=== PATIENT | female | born 1945 | race Caucasian/White ===

== ENCOUNTER → 2019-08-29 | Outpatient (CLI) | payer MEDICARE, BC ==
--- NOTE | 2019-08-30 08:40 | KCIC ---
EXAMINATION: Magnetic resonance imaging (MRI) of the cervical spine without contrast 08/29/2019 4:15 PM HISTORY: Cervicalgia. Limited range of motion of the right arm. Progressing in recent months. TECHNIQUE: Multiplanar multi-weighted MRI of the cervical spine was performed without intravenous contrast using the standard cervical spine protocol. Contrast information: None administered COMPARISON: None available. FINDINGS: There is minimal retrolisthesis of C4 on C5 and C5 on C6. There is mild to moderate disc height loss at C4-C5 and C5-C6. There is disc desiccation at C4-C5 and C5-C6. There is an osseous hemangioma at T2. Cervical spinal cord signal intensity is normal in all sequences. Mild anterior marginal osteophytosis. Vertebral body heights are maintained. Marrow signal intensity is normal in all sequences. Posterior fossa is normal in appearance. Vertebral artery flow voids are maintained. Precervical junction is intact. There is no paraspinal soft tissue abnormality. No prevertebral edema. C2-C3: Mild disc bulge with central disc protrusion. Mild left facet arthropathy. No uncovertebral joint disease. No neuroforaminal or spinal canal stenosis. C3-C4: There is mild disc bulge. No significant facet arthropathy. No neuroforaminal or spinal canal stenosis. C4-C5: There is a posterior disc osteophyte complex. There is mild facet arthropathy. Mild left uncovertebral joint disease. Mild left neuroforaminal stenosis. Mild spinal canal stenosis with ligamentum flavum infolding. No distortion of the cord or cord signal alteration. C5-C6: There is a posterior disc osteophyte complex. There is moderate left and mild right facet arthropathy. Mild uncovertebral joint disease. Mild to moderate bilateral neuroforaminal stenosis. Mild spinal canal stenosis, exacerbated by ligament of flavum infolding. There is no distortion of the cord or cord signal alteration. C6-C7: Mild disc bulge. Mild facet arthropathy. No neuroforaminal or spinal canal stenosis. C7-T1: Mild disc bulge. Mild facet arthropathy. No significant neuroforaminal or spinal canal stenosis. IMPRESSION: [id number] degenerative changes of the cervical spine, most prominent at C4-C5 and C5-C6 as detailed above. Electronically signed by: Elyse Serrano MD (08/30/2019 8:37 AM) [facility]
== END | disposition home or self-care (01) ==
LOC: KCIC MRI 15:28
PROVIDERS: ATTEND Physician Assistant Medical
DX: M47.812 Spondylosis without myelopathy or radiculopathy, cervical region (principal); M48.02 Spinal stenosis, cervical region; M50.21 Other cervical disc displacement, high cervical region; M25.78 Osteophyte, vertebrae; M12.88 Other specific arthropathies, not elsewhere classified, other specified site; D18.09 Hemangioma of other sites
CPT/HCPCS: 72141

== ENCOUNTER → 2019-09-05 | Outpatient (CLI) | payer MEDICARE, BC ==
--- NOTE | 2019-09-05 12:50 | KCIC ---
MR of the right shoulder HISTORY: Progressing right shoulder pain and limited range of motion. TECHNIQUE: Routine multiplanar sequences are obtained. FINDINGS: The acromioclavicular joint is mildly degenerative. Mild undersurface mass effect. Diffuse thickening and signal within the rotator cuff compatible with tendinosis. No measurable rotator cuff tear. No significant subdeltoid bursal effusion. No significant glenohumeral joint effusion. Tear of the posterosuperior labrum. Anterosuperior sublabral foramen, and a thick cordlike middle glenohumeral ligament, normal variants. No acute articular cartilage defect. Biceps tendon is intact. No acute fracture. No aggressive bone destruction. No acute soft tissue abnormality. IMPRESSION: 1. Posterosuperior labral tear. 2. Rotator cuff tendinosis without evidence of a tear. Electronically signed by: Alfredo Martinez MD (09/05/2019 12:47 PM) [facility]2
== END | disposition home or self-care (01) ==
LOC: KCIC MRI 07:29
PROVIDERS: ATTEND Physician Assistant Medical
DX: S43.491A Other sprain of right shoulder joint, initial encounter (principal); M19.011 Primary osteoarthritis, right shoulder; X58.XXXA Exposure to other specified factors, initial encounter; Y93.89 Activity, other specified; Y92.89 Other specified places as the place of occurrence of the external cause; Y99.8 Other external cause status
CPT/HCPCS: 73221

== ENCOUNTER → 2019-09-20 | Outpatient (CLI) | payer MEDICARE, BC ==
[~2019-09-20] MED LIST: GADOTERATE 7.5 MMOL/15ML VIAL. IVP ONE
[2019-09-20 10:55] LABS: GFR 54.3
--- NOTE | 2019-09-21 09:50 | RAD ---
CHEST WO/W CONTRAST History: Brachial plexus evaluation for neuritis. Right shoulder pain. Technique: Multiplanar, multi sequential pre and postcontrast MR imaging was performed of the right brachial plexus. Comparison: Right shoulder and cervical spine MRI September 05, 2019 and August 29, 2019. Findings: Mild edema within the right supraspinatus and infraspinatus muscle with mild enhancement. No pathologic signal abnormality or enhancement within the region of the brachial plexus nerves. No mass. No fluid collection. No cyst. Linear hyperintense structure within the region of the right brachial plexus at the level of thoracic inlet with enhancement likely related to vasculature. Partially imaged cervical spondylosis characterized on dedicated cervical spine MRI. Impression: 1. Mild edema enhancement within the right supraspinatus and infraspinatus muscle, may indicate denervation edema. 2. No pathologic signal abnormality or mass within the region of the right brachial plexus. Electronically signed by: Jersey Bonilla DO (09/21/2019 9:47 AM) [facility]
== END | disposition home or self-care (01) ==
LOC: MRI 09:55
PROVIDERS: ATTEND Orthopaedic Surgery
DX: Z01.812 Encounter for preprocedural laboratory examination (principal); M75.81 Other shoulder lesions, right shoulder; R60.0 Localized edema; Z79.01 Long term (current) use of anticoagulants
CPT/HCPCS: 36415; 71552; 82565; A9575

== ENCOUNTER → 2019-11-28 | Outpatient (CLI) | payer MEDICARE, BC ==
[~2019-11-28] MED LIST changes: +ASPI81TA50 PO; +ATOR20TA PO; +CALC-71 PO; +ESCITALOPRAM OX10 MG PO; +GABA-585 PO; -GADOTERATE 7.5 MMOL/15ML VIAL. IVP ONE; +IOHEXOL 180 MG/ML 10 ML VIAL. ONE; +LEVO75TA PO; +LIFI1DRO EACHEYE; +OMEG100021 PO; +PROP15DR EACHEYE; +WOMENS ONE A DAY PO; +methylPREDNISolone ACETATE 40 MG/ML VIAL. ONE; +methylPREDNISolone ACETATE 80 MG/ML VIAL. ONE
--- NOTE | 2019-11-29 04:02 | PAIN ---
DATE OF SERVICE: 11/28/2019 INITIAL CONSULTATION FOR PAIN CLINIC CHIEF COMPLAINT: Right upper extremity weakness. HISTORY OF PRESENT ILLNESS: This is a 74-year-old female who presents with history of weakness in the right upper extremity and decrease in motion since 07/2019, the patient came on very suddenly without the result of any specific injury or action that she is aware of. She is undergoing physical therapy since that time and is still doing it with some help. She reports some increase in strength, but better increase in range, although while she was doing the therapy initially, the range of motion got much worse in July. The patient reports now the right shoulder has poor control. She is unable to reach over her head or even up to the side. She cannot abduct her arm more than about 45 degrees. The patient reports there is some tingling in the arm and hand radiating down the back at the right side of the shoulder blade and also into the neck and the trapezius, but no real pain, just weakness and decreased range of motion in the right upper extremity. She is right hand dominant. The patient did have an MRI scan of the cervical spine showing some posterior disk osteophyte complex at C4-C5 and C5-C6 with mild facet arthropathy and mild left neural foraminal stenosis at C4-C5, mild spinal canal stenosis at C4-C5 as well. C5-C6 shows [id number] bilateral neural foraminal stenosis and mild spinal canal stenosis, exacerbated by ligamentum flavum infolding as well. C6-C7 shows mild disk bulge without stenosis. The patient rates her disability rating from 0-10, 10 being the worst, is 8-9 with family home responsibilities, 7-8 with recreation, 6 with social activity and occupation, 0 with sexual behavior, 9 with self-care and 8 with life support activities. The patient is taking gabapentin 100 mg 3 times daily, which she feels may be helpful for the range of motion on her right shoulder as well, but only very minimally. The patient reports no symptoms in the left upper extremity, no actual pain on the right, but significant range of motion loss and weakness. PAST MEDICAL HISTORY: Significant for hearing loss; previous breast surgery, chemotherapy, radiation and surgery for that as well, the breast cancer; hyperlipidemia; arthritis; anxiety; depression. PREVIOUS SURGERY: Include double mastectomy, previous C-sections and fracture of the left arm. CURRENT MEDICATIONS: Include Lipitor, Lexapro, gabapentin, Synthroid, Ecotrin, vitamins, fish oil, calcium, and eyedrops. ALLERGIES: The patient has no known drug allergies. FAMILY HISTORY: Significant for no major medical problems or conditions that she lists. SOCIAL HISTORY: The patient does not drink alcohol. Does not use any illegal, illicit or recreational drugs. Does not smoke. She is and lives with her spouse, lives locally in [place], [place]. Reports she is currently retired. REVIEW OF SYSTEMS: The patient's review of systems is positive for those items mentioned in history of present illness. All systems reviewed and otherwise negative. It is complete, full and well documented on the patient's chart. PHYSICAL EXAMINATION: VITAL SIGNS: The patient's blood pressure is 126/81, pulse 68, respirations 16, temperature 97.9 degrees Fahrenheit, height is 5 feet 2-1/2 inches and weight is 132 pounds. GENERAL: The patient is awake, alert, oriented, appropriate, very pleasant demeanor. The patient is accompanied by her . HEENT: Head shows normocephalic, atraumatic. Extraocular movements are intact and symmetrical. Oral cavity: Mucous membranes moist and pink. Dentition is intact. NECK: Shows anterior throat supple. CHEST: Shows normal on inspection. Breath sounds are clear bilaterally. HEART: Shows S1, S2 clear. No murmurs auscultated. ABDOMEN: Soft, nontender, nondistended. No palpable organomegaly is noted. No rebound or guarding demonstrated. BACK: Shows spine grossly in the midline. The patient's neck shows full rotational motion of cervical spine, normal-appearing cervical lordotic curvature, thoracic kyphotic curvature and lumbar lordotic curvature. Cervical paraspinous muscle shows symmetrical on inspection, on palpation shows some very minimal tenderness in the inferior aspect of the cervical paraspinous musculature, only on the right, into the trapezius musculature as well on the right side, but only very mildly tender with palpation. No specific trigger points, no radiation of pain. Left side is nontender. The patient has full rotational motion of cervical spine laterally as well as extension and flexion without significant pain reported or difficulty. EXTREMITIES: The patient's upper extremities show deep tendon reflexes at 2+ in the biceps and triceps tendons. Motor exam is strong with erp specialist strength rated at 5/5 as is biceps and triceps flexion. The patient's right deltoid flexion, however, is very weak about 2 on a scale of 5 with lateral and posterior movement as well as anterior is about 3-4 on a scale of 5. The patient is unable to abduct her shoulder greater than about 40-45 degrees. Left side has full rotation and motion and full strength 5/5 on the left throughout. Peripheral pulses are 2+ radial. No peripheral edema is noted. The patient's right deltoid is visibly atrophied compared to the left on visual inspection as well. Shoulder shrug is strong and intact, but the patient is using her trapezius musculature as the accessory muscle with movement of the right arm. When asked to reach over her head, she is unable to do so without assistance from the left hand to support the right upper extremity. SKIN: Shows warm and dry, good turgor. No edema. No sores, rashes or bruising throughout. IMPRESSION: 1. This is a 74-year-old female with approximate 4-month history of weakness, right upper extremity. 2. MRI scan of cervical spine as noted. 3. 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 4. Arthritis. 5. History of breast cancer. PLAN: Options were discussed with the patient and her who accompanied her to visit including conservative medical managements, continued physical therapies, interventional techniques. She would like to pursue interventional techniques. We discussed a cervical epidural steroid injection using description as well as anatomical models to describe the procedure. Risks were discussed including but not limited to bleeding, infection, possibility of epidural hematoma, subsequent neurologic compromise, dural puncture, headaches, spinal cord and/or nerve damage, side effects of steroid medication and poor results regarding pain control. The patient understands and wished to proceed. The patient will return to clinic in approximately 2 weeks for followup. She was counseled on return appointment, activity level and side effects to be aware of. DIAGNOSES: Cervical radiculopathy with cervical degenerative disk disease and cervical spinal stenosis. PROCEDURE: Cervical epidural steroid injection, translaminar approach C6-C7 level using C-arm fluoroscopic guidance under sterile prep and drape using local anesthetic. MEDICATION INJECTED: A total of 120 mg Depo-Medrol plus 5 mL of preservative-free normal saline and 2 mL of contrast. CONDITION AT DISCHARGE: Stable. The patient tolerated the procedure well, had no complications. JESICA ESQUEDA MD DR: BENITA/aminta JOB#: [id number] / [id number] Krunal Peñaloza MD
== END ==
LOC: PNCL 10:03
PROVIDERS: ATTEND Anesthesiology
DX: M50.123 Cervical disc disorder at C6-C7 level with radiculopathy (principal); M48.02 Spinal stenosis, cervical region; E78.5 Hyperlipidemia, unspecified; F41.9 Anxiety disorder, unspecified; F32.9 Major depressive disorder, single episode, unspecified; Z85.3 Personal history of malignant neoplasm of breast; Z87.39 Personal history of other diseases of the musculoskeletal system and connective tissue; Z90.13 Acquired absence of bilateral breasts and nipples; Z98.890 Other specified postprocedural states
CPT/HCPCS: 62321; J1030; J1040; Q9965

== ENCOUNTER → 2019-12-12 | Outpatient (CLI) | payer MEDICARE, BC ==
[~2019-12-12] MED LIST changes: -IOHEXOL 180 MG/ML 10 ML VIAL. ONE; -methylPREDNISolone ACETATE 40 MG/ML VIAL. ONE; -methylPREDNISolone ACETATE 80 MG/ML VIAL. ONE
--- NOTE | 2019-12-12 21:29 | PAIN ---
DATE OF SERVICE: 12/12/2019 PROGRESS NOTE FOR PAIN CLINIC DIAGNOSES: Cervical radiculopathy with cervical degenerative disk disease and cervical spinal stenosis. HISTORY OF PRESENT ILLNESS: The patient is a 74-year-old female, who returns for followup, status post cervical epidural steroid injection x 1. The patient with Parsonage-Jensen syndrome of the right shoulder without any significant increase in mobility with the injection. The patient reports she is still doing physical therapy about twice a week, which she feels much better with some massage techniques to the right trapezius in the shoulder itself as she has some significant weakness from her Parsonage-Jensen syndrome on the right shoulder. The patient reports that she still cannot raise her right arm fully, but she can raise it a slight bit higher, but feels this is probably due to physical therapy with no significant improvement after the injection. The patient reports still some dull and tight pain in the shoulder, but only very minimal. The patient reports it is a 2 on a scale of 10 at its worst, average and 0 at its least and is 0 today as far as pain goes, but her mobility is significantly decreased. PHYSICAL EXAMINATION: VITAL SIGNS: The patient's blood pressure 122/78, pulse 64, respirations 16, temperature 97.6 degrees Fahrenheit and weighs 134 pounds. GENERAL: The patient is awake, alert, oriented, appropriate, has very pleasant demeanor. HEENT: Shows normocephalic, atraumatic. Extraocular movements are intact and symmetrical. Oral cavity: Mucous membranes moist and pink. Dentition is intact. NECK: Shows anterior throat supple without palpable lymphadenopathy noted. Swallow reflex symmetrical. CHEST: Shows normal on inspection. Breath sounds clear to auscultation bilaterally. HEART: Shows S1, S2 clear. No murmurs auscultated. ABDOMEN: Soft, nontender, nondistended. No palpable organomegaly is noted. No rebound or guarding demonstrated. BACK: Shows spine grossly in the midline, normal-appearing cervical lordotic curvature, thoracic kyphotic curvature and lumbar lordotic curvature. EXTREMITIES: The patient's upper extremities show deep tendon reflexes at 2+ in the biceps and triceps tendons. Motor exam is strong with social work program coordinator strength rated at 5/5. Bicep and tricep flexion is about 2 on a scale of 5 on the right especially with bicep flexion, 2-3 with triceps on the right, 5/5 on the left in all muscle groups. The patient has inability to flex the lateral aspect of the deltoid or the anterior aspect of the deltoid and uses her left hand to raise her arm on the right side with significant weakness in the anterior and lateral deltoid distribution with abduction of the shoulder and forward reach. Peripheral pulses are 2+ radial distribution. No peripheral edema is noted bilaterally. PLAN: Options were discussed with the patient. The patient's old chart was reviewed as her current medication regimen updated. Current review of systems updated today as well. We will hold on any further injections as the patient is not sure that she had any benefit from the first. I will encourage her to follow up with physical therapy, maintain physical therapy schedule. She will also follow up with her orthopedic surgeon as scheduled and we will leave the followup open at this time. JESICA ESQUEDA MD DR: BENITA/aminta JOB#: [id number] / [id number]
== END | disposition home or self-care (01) ==
LOC: PNCL 09:45
PROVIDERS: ATTEND Anesthesiology
DX: M50.10 Cervical disc disorder with radiculopathy, unspecified cervical region (principal); M48.02 Spinal stenosis, cervical region
CPT/HCPCS: G0463

== ENCOUNTER → 2021-03-21 | Outpatient (CLI) | payer MEDICARE, BC ==
[~2021-03-21] MED LIST changes: -LEVO75TA PO; +LEVO75TA90 PO
--- NOTE | 2021-03-21 15:42 | KCIC ---
MR LUMBAR SPINE WO [id number] History: Reason: LUMBAR BACK PAIN AFFECTING LEFT SIDE, Worsening LBP into left hip and leg. Technique: Multiplanar, multi sequential MR imaging was performed of the lumbar spine without intrave nous contrast. Comparison: None Findings: Normal vertebral body height and alignment. No fracture. Interosseous hemangioma at L2 and L4 vertebr al bodies. Modic type I endplate examination at L5-S1. Conus terminates at the normal location. No ev idence of nerve root clumping. Multilevel degenerative changes with disc desiccation and disc space n arrowing, specific level as follow: T11-T12: No canal stenosis or neuroforaminal narrowing. T12-L1: Diffuse disc bulge with tiny central disc protrusion, indenting thecal sac. No canal stenosis or neuroforaminal narrowing. L1-L2, L2-L3: Mild diffuse disc bulge. No canal stenosis or neuroforaminal narrowing. L3-L4: Diffuse disc bulge with mild bilateral facet arthropathy. Central annular fissure. No signific ant canal stenosis. Mild left neuroforaminal narrowing. L4-5: Diffuse disc bulge with broad-based central disc protrusion indenting thecal sac. Mild bilatera l facet arthropathy and ligamentum flavum thickening. Mild canal stenosis. Moderate left and mild rig ht neuroforaminal narrowing. L5-S1: Diffuse disc bulge with central disc protrusion, indenting thecal sac. Mild bilateral facet ar thropathy with ligamentum flavum hypertrophy. No significant canal stenosis. Moderate bilateral neuro foraminal narrowing. IMPRESSION: 1. Multilevel degenerative changes as described above, worst at L4-5 and L5-S1 with mild canal stenos is. 2. Moderate bilateral neuroforaminal narrowing at L5-S1 and right L4-5. Electronically signed by: Irasema Cassidy MD (03/21/2021 3:39 PM) [id number]
== END ==
LOC: KCIC MRI 14:31
PROVIDERS: ATTEND Physician Assistant
DX: M47.27 Other spondylosis with radiculopathy, lumbosacral region (principal); M48.07 Spinal stenosis, lumbosacral region
CPT/HCPCS: 72148